=== PATIENT | male | born 1985 | race Hispanic/Latino ===

== ENCOUNTER 2017-03-12 17:38 | Emergency (ER) | payer OTHER ==
[~2017-03-12] VITALS: Ht 175.3 cm; Wt 83.0 kg
[2017-03-12] MEDS ORDERED: NORCO, ANEXSIA 5/325MG TABLET (HYDROcodone/ACETAMINOPHEN) PO ONE (18:15)
--- NOTE | 2017-03-12 18:50 | REPUSA ---
HISTORY: NO PRIORS - R/O SBO. TECHNIQUE: Multisequence, multiplanar MRI imaging of abdomen and pelvis with coronal and sagittal ref ormatted imaging, without intravenous or oral contrast. DLP= 435.1 mGy-cm. FINDINGS: The bowel appears normal with no evidence of bowel wall mass lesion, obstruction, perforat ion, inflammatory reaction, or evidence of diverticulitis. The appendix is visualized and normal. There is a 2.3 cm fat containing umbilical hernia without bowel complication. Lung bases are clear. Bone windows demonstrate no fracture or destructive bony lesion. The liver, b iliary tree, gallbladder, spleen, pancreas, adrenal glands, abdominal aorta, and IVC are normal. No retroperitoneal or mesenteric lymphadenopathy is seen. There is a 2 mm nonobstructing calculus in the lower pole of the left kidney. No calculi are seen in the right kidney and no renal masses seen on noncontrast examination. Ureters and urinary bladder a re normal. No pelvic mass lesions or abnormal peritoneal fluid collections are seen. IMPRESSION: 1. 2 mm nonobstructing calculus in the left kidney with no evidence of urinary tract mas s, obstruction, or other abnormality seen in the noncontrast examination. 2. Normal CT examination of the bowel with no evidence of small bowel obstruction, bowel inflammatio n, or bowel mass lesions seen on the noncontrast examination. 3. 2.3 cm uncomplicated, fat-containing umbilical hernia. 4. The remainder of the CT examination of the abdomen and pelvis is normal.
[2017-03-12] MEDS ORDERED: NAPR500T PO (19:08)
[2017-03-12] MEDS ORDERED: CYCL10TA PO (19:08)
[2017-03-12 19:34] VITALS: BP 141/96
== END 2017-03-12 20:04 | disposition home or self-care (01) ==
LOC: EDSEX 17:38 → M ED 17:38
DX: K43.9 Ventral hernia without obstruction or gangrene (principal); S39.001A Unspecified injury of muscle, fascia and tendon of abdomen, initial encounter; X58.XXXA Exposure to other specified factors, initial encounter; Y92.89 Other specified places as the place of occurrence of the external cause; Y93.89 Activity, other specified; Y99.8 Other external cause status; F17.210 Nicotine dependence, cigarettes, uncomplicated